=== PATIENT | female | born 2000 | race Two or more races ===

== ENCOUNTER 2022-07-19 12:08 | Emergency (ER) | payer BC, OTHER ==
[~2022-07-19] VITALS: Ht 162.6 cm; Wt 67.1 kg
--- NOTE | 2022-07-19 12:38 | NUR ---
DAVIDSejulio c, pt c/o feeling dizzy, emesis x1, mestrual cramps cycle started this AM, weak, nausea
--- NOTE | 2022-07-19 12:39 | NUR ---
pt able to drink water well, no choking , no dribble noted, face symmetrical, able to raise and hold all limbs on command for 10 seconds or more, showing no s/s of stroke or other at this time.
[2022-07-19 13:18] LABS: BASOPHILS % (AUTO) 0.2 % (0.0-2.0); EOSINOPHILS % (AUTO) 0.1 % (0.0-6.0); HEMATOCRIT 39 % (33-45); HEMOGLOBIN 12.9 g/dL (11.5-14.8); LYMPHOCYTES # (AUTO) 0.8 K/uL (0.8-4.8); LYMPHOCYTES % (AUTO) 8.6 % (20.0-44.0); MEAN CORPUSCULAR HGB CONC 33 g/dl (31.0-36.0); MEAN CORPUSCULAR VOLUME 93 fL (82-100); MONOCYTES # (AUTO) 0.5 K/uL (0.1-1.30); MONOCYTES % (AUTO) 5.4 % (2.0-12.0); NEUTROPHILS # (AUTO) 7.9 K/uL (1.8-8.9); NEUTROPHILS % (AUTO) 85.7 % (43.0-81.0); PLATELET COUNT (AUTO) 276 K/uL (150-450); WHITE BLOOD COUNT (AUTO) 9.3 K/uL (4.3-11.0)
[2022-07-19 13:29] LABS: CALCIUM, SERUM 9.2 mg/dL (8.5-10.1); CREATININE 0.7 mg/dL (0.6-1.3); POTASSIUM 4.2 mmol/L (3.5-5.1)
[2022-07-19 14:28] VITALS: BP 102/68
== END 2022-07-19 14:30 | disposition home or self-care (01) ==
LOC: ER 12:32
DX: R42 Dizziness and giddiness (principal)
CPT/HCPCS: 36415; 80048-TC; 85025-TC

== ENCOUNTER 2022-08-14 23:02 | Emergency (ER) | payer BC ==
[~2022-08-14] VITALS: Ht 162.6 cm; Wt 67.1 kg
--- NOTE | 2022-08-15 01:34 | NUR ---
BIBFATHER C/O MINOR AND BODY ACHE STARTED AT 3PM. PATIENT A/O X4, RR EVEN AND UNLABORED NO SOB NOTED. VSS, PT IS AFEBRILE. WILL CONTINUE TO MONITOR.
[2022-08-15] MEDS ORDERED: KETOROLAC TROMETHAMINE INJ 30 MG/ML VIAL IV ONE (02:30)
[2022-08-15] MEDS ORDERED: diphenhydrAMINE HCL 50 MG/ML VIAL IV ONE (02:30)
[2022-08-15] MEDS ORDERED: IV NS 0.9% 1,000 ML IV ONE (02:30)
[2022-08-15] MEDS ORDERED: PROCHLORPERAZINE EDISYLATE 10 MG/2 ML VIAL IVP ONE (02:30)
[2022-08-15] MEDS ORDERED: KETOROLAC TROMETHAMINE 15 MG/ML VIAL ONE (02:31)
[2022-08-15] MEDS ORDERED: PROCHLORPERAZINE EDISYLATE 10 MG/2 ML VIAL ONE (02:31)
[2022-08-15] MEDS ORDERED: diphenhydrAMINE HCL 50 MG/ML VIAL ONE (02:31)
--- NOTE | 2022-08-15 02:50 | NUR ---
RAC #18G S/L. COVID ANTIGEN AND INFLUENZA SWAB COLLECTED AND SENT TO LAB
--- NOTE | 2022-08-15 03:58 | NUR ---
PT DENIES PAIN AT THIS TIME. DR. INESSA GONZALEZ AWARE
--- NOTE | 2022-08-15 04:43 | NUR ---
Patient discharged to home in stable condition. Written and verbal after care instructions given. Patient verbalizes understanding of instruction.PT ambulatory with a steady gait IV removed. Catheter intact and site benign. Pressure and 4x4 applied to site. No bleeding noted.
[2022-08-15 05:08] VITALS: BP 113/70
== END 2022-08-15 05:08 | disposition home or self-care (01) ==
LOC: ER 23:11
DX: R51.9 Headache, unspecified (principal); Z20.822 Contact with and (suspected) exposure to COVID-19
CPT/HCPCS: 99284; 96374; 96375; 96361; 87426; 87804; 84703; J0780; J1200; J7030; J1885; C9803

== ENCOUNTER 2022-08-20 15:39 | Emergency (ER) | payer BC ==
[~2022-08-20] VITALS: Ht 162.6 cm; Wt 67.1 kg
--- NOTE | 2022-08-20 15:54 | NUR ---
BIBS W/ C/O RASHES ON VAGINAL AREA STARTED ON SUNDAY . TO ER BED 16.
--- NOTE | 2022-08-20 16:24 | NUR ---
Patient discharged to home in stable condition. Written and verbal after care instructions given. Patient verbalizes understanding of instruction.
[2022-08-20 17:02] VITALS: BP 116/84
== END 2022-08-20 17:02 | disposition home or self-care (01) ==
LOC: ER 15:39
DX: N73.0 Acute parametritis and pelvic cellulitis (principal)

== ENCOUNTER 2023-03-17 20:03 | Emergency (ER) | payer BC ==
[~2023-03-17] VITALS: Ht 162.6 cm; Wt 68.0 kg
--- NOTE | 2023-03-17 20:50 | NUR ---
BIBSELF C/O ABDOMINAL PAIN X3 DAYS, STARTED RADIATING TO BACK SINCE LAST NIGHT. PAIN 9/10 AT THIS TIME; TOOK TYLENOL 500MG LAST NIGHT, PEPTO BISMOL IN AM. PT AAOX4, IN NAD, AMBULATORY. PLACED IN BED, VITALS CHECKED.
--- NOTE | 2023-03-17 20:57 | NUR ---
AT [facility]
[2023-03-17] MEDS ORDERED: IV NS 0.9% 1,000 ML BAG IV ONE (21:00)
[2023-03-17] MEDS ORDERED: KETOROLAC TROMETHAMINE INJ 30 MG/ML VIAL IV ONE (21:00)
[2023-03-17] MEDS ORDERED: KETOROLAC TROMETHAMINE 15 MG/ML VIAL ONE (21:08)
--- NOTE | 2023-03-17 21:37 | NUR ---
URINE COLLECTED AND SENT TO LAB
--- NOTE | 2023-03-17 21:37 | NUR ---
RAC 20G STARTED. BLOOD COLLECTED AND RYAN TO LAB
[2023-03-17 21:39] LABS: BASOPHILS % (AUTO) 0.4 % (0.0-2.0); EOSINOPHILS % (AUTO) 0.4 % (0.0-6.0); HEMATOCRIT 39 % (33-45); HEMOGLOBIN 12.9 g/dL (11.5-14.8); LYMPHOCYTES # (AUTO) 2.3 K/uL (0.8-4.8); LYMPHOCYTES % (AUTO) 21.6 % (20.0-44.0); MEAN CORPUSCULAR HGB CONC 33 g/dl (31.0-36.0); MEAN CORPUSCULAR VOLUME 94 fL (82-100); MONOCYTES # (AUTO) 0.6 K/uL (0.1-1.30); MONOCYTES % (AUTO) 5.8 % (2.0-12.0); NEUTROPHILS # (AUTO) 7.7 K/uL (1.8-8.9); NEUTROPHILS % (AUTO) 71.8 % (43.0-81.0); PLATELET COUNT (AUTO) 321 K/uL (150-450); RED BLOOD CELL COUNT(AUTO) 4.17 MIL/uL (4.0-5.2); WHITE BLOOD COUNT (AUTO) 10.8 K/uL (4.3-11.0)
[2023-03-17] MEDS ORDERED: IV NS 0.9% 250 ML IV ONE (21:42)
[2023-03-17] MEDS ORDERED: IOHEXOL-300 100 ML VIAL IV ONE (21:42)
--- NOTE | 2023-03-17 21:45 | NUR ---
PT TAKEN TO CT VIA [facility]HEL
[2023-03-17 21:53] LABS: CALCIUM, SERUM 10.5 mg/dL (8.5-10.1); CREATININE 0.7 mg/dL (0.6-1.3); POTASSIUM 3.6 mmol/L (3.5-5.1)
--- NOTE | 2023-03-17 21:57 | NUR ---
PT RETURNED TO ER BED [address]
[2023-03-17 22:40] LABS: BILIRUBIN,URINE NEGATIVE (NEGATIVE); COLOR,URINE YELLOW (YELLOW); LEUKOCYTE ESTERASE ,URINE NEGATIVE (NEGATIVE); NITRITE, URINE NEGATIVE (NEGATIVE); PROTEIN,URINE NEGATIVE (NEGATIVE); UGLUCOSE NEGATIVE (NEGATIVE); UROBILINOGEN,URINE 0.2 EU/dL (0.2)
[2023-03-17 23:01] LABS: BACTERIA,URINE Rare /HPF (None Seen); SQUAMOUS EPITHELIAL CELL,UR Few /HPF (None Seen); WBC,URINE 0-2 /HPF (0-3)
[2023-03-17 23:31] LABS: ALBUMIN 4.4 g/dL (3.4-5.0); BILIRUBIN,DIRECT 0.2 mg/dL (0.0-0.2); BILIRUBIN,TOTAL 1.2 mg/dL (0.2-1.0); TOTAL PROTEIN, SERUM 8.8 g/dL (6.4-8.2)
[2023-03-17] MEDS ORDERED: IBUP-1953 PO (23:53)
--- NOTE | 2023-03-18 | NUR ---
Patient discharged to home in stable condition. Written and verbal after care instructions given. Patient verbalizes understanding of instruction.
[2023-03-18 02:43] VITALS: BP 115/89
== END 2023-03-18 02:44 | disposition home or self-care (01) ==
LOC: ER 20:08
DX: R10.31 Right lower quadrant pain (principal)
CPT/HCPCS: 99285; 74177; 96374; 96361; 85025; 80048; 83690; 80076; 84703; 81001; 36415; J7030; J7050; Q9967; J1885